=== PATIENT | male | born 1975 | race Two or more races ===

== ENCOUNTER 2016-05-05 19:49 | Emergency (ER) | payer MEDICAID ==
--- NOTE | 2016-05-10 15:06 | ER ---
ADMIT: 05/05/2016 RM/LOC: ER [facility] MR#: [id number] [address] [id number] ODETTE TAYLOR [address] [place] [id number] Emergency Room Report SEX: M AGE: 40 : 1975 DATE: 05/05/2016 TIME: 1949 hours. Please refer to my T-sheet for complete H and P. HISTORY OF PRESENT ILLNESS: Briefly, the patient is a 40-year-old who comes in with acute onset of dizziness while at work. He said it got a little better, he got home and then it returned. When he moves his head, it feels like everything is spinning. He has had a recent upper respiratory cold. PHYSICAL EXAMINATION: VITAL SIGNS: Blood pressure 145/93, pulse 106, respirations 18, temp 97.3, saturating 99%. GENERAL: He is in no acute distress. HEENT: He has mild swelling of his turbinates in his nose. TMs are actually clear. Throat clear. NECK: Soft, supple. No meningismus. No bruits. LUNGS: Clear to auscultation without crackles or wheezes. HEART: Regular. No murmur. ABDOMEN: Soft. SKIN: No rash. NEURO: He does have reproducible horizontal nystagmus with any motion of his head. EMERGENCY DEPARTMENT COURSE: I gave him a liter of normal saline bolus, Ativan 1 mg IV, Reglan 10 mg IV, nausea was better, his symptoms were better, he was not completely resolved. I gave him another dose of Ativan 1 mg IV, 25 mg Nexium p.o. He was improved, but not completely resolved obviously. CAT scan of his brain was negative. CBC normal. Chemistries normal except potassium 3.2. EKG is sinus rhythm, rate of 109, no changes. His significant other was here to take him home and he is ready for discharge. ASSESSMENT: Acute vertigo. PLAN: Meclizine 25 mg t.i.d. p.r.n., Valium 2.5 mg t.i.d. p.r.n. Return if worse. No work tomorrow. Rest, fall precautions. Follow up with Dr. Yarbrough in 2 to 3 days if not better. Christian Vincent MD/ ally JOB #: [id number] CC: Christian Vincent MD, Attending Physician Bull Yarbrough MD, Family Physician
== END 2016-05-05 22:25 | disposition home or self-care (01) ==
LOC: ER 19:49
DX: R42 Dizziness and giddiness (principal); Z85.038 Personal history of other malignant neoplasm of large intestine; Z79.899 Other long term (current) drug therapy